=== PATIENT | female | born 1995 | race Caucasian/White ===

== ENCOUNTER 2018-06-12 23:11 | Emergency (ER) | payer SELFPAY ==
[~2018-06-12] VITALS: Wt 84.5 kg
--- NOTE | 2018-06-13 00:07 | ERD ---
ER Documentation Chief Complaint Chief Complaint SI W/ PLAN TO HANG SELF, HPI This is a 23-year-old female who has homeless stating she has been depressed and suicidal for 3 or 4 years. She says at its rates she is combination and she is tired of it and wants to end her life. She said she will either cut or hang h erself. She denies any drug use ROS All systems reviewed and are negative except as per history of present illness. FmHx Family History: No coronary disease Physical Exam Vitals Vital Signs Date Temp Pulse Resp B/P (MAP) Pulse Ox O2 O2 Flow FiO2 Time Delivery Rate 06/12/18 98.7 95 20 139/85 100 23:19 (103) Physical Exam Const: No acute distress Head: Atraumatic Eyes: Normal Conjunctiva ENT: Normal External Ears, Nose and Mouth. Neck: Full range of motion. No meningismus. Resp: Clear to auscultation bilaterally Cardio: Regular rate and rhythm, no murmurs Abd: Soft, non tender, non distended. Normal bowel sounds Skin: No petechiae or rashes Back: No midline or flank tenderness Ext: No cyanosis, or edema Neur: Awake and alert Psych: Suicidal Procedures/MDM Patient will be evaluated by telemetry psychiatry and transferred to inpatient facility Departure Diagnosis: Primary Impression: Suicidal ideation Condition: Stable RENEA ARELLANO DO Jun 13, 2018 00:07
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
--- NOTE | 2018-06-13 06:56 | QN ---
Documentation Comment Psychiatric Observation Note: Indication: Suicidal ideation Duration: Greater than 7 hours Family history: As documented in original HPI The patient was observed with serial exams over the above timeframe. The patient continued to be well-appearing, and observation continued without complication. All other needs have been met during emergency department stay. Routine psychiatric medications ordered: Yes, see EMR however we do not carry Saphris in our formulary. Repeat telemetry medicine psychiatry evaluation today would appreciate alternative medication recommendation Hold status: Telemetry medicine psychiatry has recommended voluntary psychiatric inpatient placement. Placement status: The patient is self-pay, registration unable to provide emergency [facility] for this patient. Pending placement at this time. Repeat telemetry medicine psychiatry evaluation today. MARGA WALTON MD Jun 13, 2018 06:56
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
[2018-06-13] MEDS ORDERED: ARIPIPRAZOLE 5 MG TAB PO SCH (09:00)
[2018-06-13 12:41] VITALS: BP 127/76; PULSE 68; RESP 18
== END 2018-06-13 18:55 ==
LOC: E/R 23:11
DX: R45.851 Suicidal ideations (principal); R40.2142 Coma scale, eyes open, spontaneous, at arrival to emergency department; R40.2362 Coma scale, best motor response, obeys commands, at arrival to emergency department; R40.2252 Coma scale, best verbal response, oriented, at arrival to emergency department
CPT/HCPCS: 36415; 80053; 80307; 82962; 85025